=== PATIENT | female | born 2000 | race American Indian/Alaskan Native ===

== ENCOUNTER 2022-12-25 16:30 | Inpatient (IN) | payer OTHER ==
[2022-12-25 18:06] LABS: HEMOGLOBIN 9.1 g/dL (12.0-18.0); MCH 23.5 (27-36); MCHC 31.4 g/dl (30-36); MCV 74.7 fl (81-99); RBC 3.88 M/ul (4.3-5.7); RDW 16.2 (10.5-15.0)
[2022-12-25 18:36] LABS: ABO A; ANTIBODY SCREEN NEGATIVE; RH POSITIVE
[2022-12-25 20:04] LABS: INFLUENZA B NAA NEGATIVE (NEGATIVE); RESPIRATORY SYNCYTIAL VIR NAA NEGATIVE (NEGATIVE)
[2022-12-26 02:13] LABS: AMPHETAMINES, UR NEGATIVE (NEGATIVE); BARBITURATES, UR NEGATIVE (NEGATIVE); BENZODIAZEPINES, UR NEGATIVE (NEGATIVE); BUPRENORPHINE,UR NEGATIVE (NEGATIVE); COCAINE, UR NEGATIVE (NEGATIVE); MARIJUANA (THC), UR NEGATIVE (NEGATIVE); MDMA, UR NEGATIVE (NEGATIVE); METHADONE, UR NEGATIVE (NEGATIVE); METHAMPHETAMINE, UR NEGATIVE (NEGATIVE); OPIATES, UR NEGATIVE (NEGATIVE); OXYCODONE, UR NEGATIVE (NEGATIVE); PHENCYCLIDINE, UR NEGATIVE (NEGATIVE); TRICYCLIC ANTIDEPRESSANT, UR NEGATIVE (NEGATIVE)
[2022-12-26 05:38] LABS: HEMATOCRIT 21.9 % (35.0-50.0); HEMOGLOBIN 6.8 g/dL (12.0-18.0); MCH 23.3 (27-36); MCHC 31.1 g/dl (30-36); RBC 2.92 M/ul (4.3-5.7); RDW 16.2 (10.5-15.0)
--- NOTE | 2022-12-26 09:29 | PR ---
[facility] [address], [place] [address] Signed PP Progress Notes Datetime Report Generated by MICHELET: 12/26/2022 09:29 SUBJECTIVE: [id number] Pain: Within Normal Limits Nausea/Vomiting: Denies Flatus: Yes Bowel Movement: No Vital Signs: [id number] Vital Signs: Reviewed; Within Normal Limits Abdomen/Uterus: Normal Lochia: Normal Extremities: Normal Progress: Normal IMPRESSION/PLAN/PROCEDURES: [id number] Impression: Normal Progression Plan: Continue Present Management Procedures: None Progress Notes: 22 yo s/p . PPD #1. Doing well. Denies SANTOS, lightheadedness/dizziness, CP, SOB, F/C, N/V, RUQ pain, changes in vision, vaginal discharge. Tolerating regular diet, ambulating, voiding on own, +flatus, pain controlled. No overnight events. O: AFVSS Abd: Soft, NT. Fundus firm and below umbilicus. Musc: REIS, minimal edema. Labs: 9.1/29.0 --> 6.8/21.9 A/P: Patient well. She has acute on chronic blood loss anemia secondary to blood loss during delivery. Currently she is asymptomatic. Discussed the options of 1) not doing anything is she so chooses 2) oral iron supplementation 3) IV iron transfusion 4) blood transfusion. All R/B/A discussed with patient. She is unsure how she wants to proceed. Will continue to discuss. Likely discharge home tomorrow AM. Continue routine care. Signing Physician: Shan Finney MD *Electronically Signed* 12/26/22 0929 SHAN FINNEY MD PATIENT NAME: NANCY PATHAK PROGRESS NOTE DATE OF : 00 PHYSICIAN: SHAN FINNEY MD RPT #: [id number] REPORT IS CONFIDENTIAL AND NOT TO BE RELEASED WITHOUT AUTHORIZATION
--- NOTE | 2022-12-27 05:10 | PR ---
[facility] [place] [facility] [address], [place] [address] Signed PP Progress Notes Datetime Report Generated by LEOBARDON: 12/27/2022 05:10 SUBJECTIVE: [id number] Pain: Within Normal Limits Nausea/Vomiting: Denies Flatus: Yes Bowel Movement: No Vital Signs: [id number] Vital Signs: Reviewed; Within Normal Limits Abdomen/Uterus: Normal Lochia: Normal Extremities: Normal Progress: Normal IMPRESSION/PLAN/PROCEDURES: [id number] Impression: Normal Progression Plan: Discharge Procedures: None Progress Notes: S: Patient well. 22 yo s/p . PPD #2. On chronic acute blood loss anemia secondary to blood loss from delivery. Doing well. Denies SANTOS, CP, SOB, F/C, N/V, RUQ pain, changes in vision, vaginal discharge. Tolerating regular diet, ambulating, voiding, pain controlled. She decided against blood and iron transfusion yesterday as she states "I feel fine." Vital signs are stable and she is asymptomatic. O: Abd: Soft. Non tender. Fundus firm, below umbilicus. Musc: Moving all extremities. No C/C/E. A/P: Patient well. Meeting all hospital milestones. Will discharge home today. Signing Physician: Shan Swartz MD Copies: ~ *Electronically Signed* 12/27/22 0510 SHAN SWARTZ MD PATIENT NAME: NANCY PATHAK PROGRESS NOTE DATE OF : 00 PHYSICIAN: SHAN SWARTZ MD RPT #: [id number] REPORT IS CONFIDENTIAL AND NOT TO BE RELEASED WITHOUT AUTHORIZATION
== END 2022-12-27 12:50 | disposition home or self-care (01) | DRG 806 ==
LOC: FBCO 16:30 → FBC 16:32
PROVIDERS: Obstetrics & Gynecology; ADMIT Obstetrics & Gynecology; ATTEND Obstetrics & Gynecology
PROC: 10E0XZZ Delivery of Products of Conception, External Approach (ICD-10-PCS; principal; 2022-12-25)
PROC: 0UQMXZZ Repair Vulva, External Approach (ICD-10-PCS; 2022-12-25)
DX: O62.3 Precipitate labor (principal); D62 Acute posthemorrhagic anemia; Z37.0 Single live birth; O69.81X0 Labor and delivery complicated by cord around neck, without compression, not applicable or unspecified; O90.81 Anemia of the puerperium; O70.0 First degree perineal laceration during delivery; Z20.822 Contact with and (suspected) exposure to COVID-19; Z67.10 Type A blood, Rh positive; Z3A.37 37 weeks gestation of pregnancy
CPT/HCPCS: 36415; 82803; 85027; 85060; 86850; 86900; 86901; 87502; A9270; J2590; U0002

== ENCOUNTER 2023-02-24 20:49 | Emergency (ER) | payer OTHER ==
[~2023-02-24] VITALS: Ht 157.5 cm; Wt 55.4 kg
[2023-02-24] MEDS ORDERED: IRON 100 PLUS1 EACH PO (20:59)
[2023-02-24 21:16] LABS: BASOPHILS 0.6 % (0-2); EOSINOPHILS 1.7 % (0-6); HEMATOCRIT 32.6 % (35.0-50.0); HEMOGLOBIN 10.2 g/dL (12.0-18.0); LYMPHOCYTES 46.9 % (24-44); MCH 20.7 (27-36); MCHC 31.2 g/dl (30-36); MCV 66.3 fl (81-99); MONOCYTES 7.5 % (0-12); NEUTROPHILS 43.3 % (39-80); PLATELET COUNT 341 K/uL (140-440); RBC 4.91 M/ul (4.3-5.7); RDW 17.9 (10.5-15.0)
[2023-02-24 21:30] LABS: ALBUMIN/GLOBULIN RATIO 1.14 (1.1-2.4); ANION GAP 13.1 (7-21); BILIRUBIN, TOTAL 0.1 ng/dL (0.2-1.0); BUN/CREATININE RATIO 17.85 (6.0-28.6); CALCIUM 8.9 mg/dL (8.5-10.1); CREATININE, SERUM 0.84 mg/dL (0.55-1.02); MAGNESIUM 1.8 mg/dL (1.8-2.4); POTASSIUM 3.1 mmol/L (3.5-5.1); PROTEIN, TOTAL 7.5 g/dL (6.4-8.2)
[2023-02-24 23:10] LABS: BILIRUBIN, URINE NEGATIVE (negative); BLOOD/HGB, URINE MODERATE (Negative); KETONE, URINE NEGATIVE (Negative); LEUK ESTERASE, URINE TRACE (negative); NITRITE, URINE NEGATIVE (negative); PH, URINE 8.5 (5-7)
[2023-02-24 23:18] VITALS: BP 117/73
[2023-02-24 23:20] LABS: BACTERIA, URINE 1+ /hpf (negative); CRYSTALS, URINE AMORPHOUS URATES 3+ (0-1+); EPITHELIAL CELLS, URINE SQUAMOUS 1+ /lpf (0-1+)
[2023-02-24 23:21] LABS: REFLEX CULTURE, URINE No (No)
[2023-02-24 23:26] LABS: AMPHETAMINES, URINE NEGATIVE (NEGATIVE); BARBITURATES, URINE NEGATIVE (NEGATIVE); BENZODIAZEPINE, URINE NEGATIVE (NEGATIVE); BUPRENORPHINE, URINE NEGATIVE (NEGATIVE); CANNABINOID, URINE NEGATIVE (NEGATIVE); COCAINE, URINE NEGATIVE (NEGATIVE); ECSTASY, URINE NEGATIVE (NEGATIVE); FENTANYL, URINE NEGATIVE (NEGATIVE); METHADONE, URINE NEGATIVE (NEGATIVE); OPIATES, URINE NEGATIVE (NEGATIVE); OXYCODONE, URINE NEGATIVE (NEGATIVE); PHENCYCLIDINE, URINE NEGATIVE (NEGATIVE)
--- NOTE | 2023-02-25 05:58 | EKG ---
[facility] [address] [facility] [place], [place] [address] Signed Normal sinus rhythm Normal ECG No previous ECGs available Confirmed by ARIE GIVENS MD ([id number]) on 02/25/2023 5:58:48 AM Electronically Signed By: ARIE GIVENS 02/25/23 0558 PATIENT NAME: NANCY PATHAK Electrocardiogram DATE OF : 00 PHYSICIAN: ARIE GIVENS REPORT #: [id number] REPORT IS CONFIDENTIAL AND NOT TO BE RELEASED WITHOUT AUTHORIZATION
== END 2023-02-24 23:20 | disposition home or self-care (01) ==
LOC: ED 20:49
PROVIDERS: Internal Medicine
DX: R07.89 Other chest pain (principal); D50.9 Iron deficiency anemia, unspecified; R74.8 Abnormal levels of other serum enzymes; Z88.0 Allergy status to penicillin; Z79.899 Other long term (current) drug therapy
CPT/HCPCS: 36415; 71045; 80053; 80307; 81001; 83690; 83735; 84484; 84703; 85025; 85060; 93005; 93010; A9270; J1885; J7121